=== PATIENT | male | born 1950 | race Caucasian/White ===

== ENCOUNTER 2018-03-20 19:23 | Emergency (ER) | payer MEDICARE ==
[~2018-03-20] VITALS: Ht 188 cm; Wt 128.4 kg
[2018-03-20] MEDS ORDERED: ASPIRIN 81 MG TAB.CHEW PO ONE (19:45)
[2018-03-20 20:21] LABS: BASO % 0 % (0-3); EOS % 0 % (0-3); HEMATOCRIT 46.9 % (39.0-53.0); HEMOGLOBIN 16.2 g/dL (13.0-17.5); LYMPH # 1.3 x10^3/uL (1.0-4.8); LYMPH % 10 % (24-48); MEAN CORPUSCULAR HEMOGLOBIN 29 pg (25-35); MEAN CORPUSCULAR HGB CONC 35 g/dL (31-37); MEAN CORPUSCULAR VOLUME 84 fL (79-100); MONO # 1.3 x10^3/uL (0.0-1.1); MONO % 10 % (0-9); NEUT # 10.5 x10^3uL (1.8-7.7); NEUT % 80 % (31-73); PLATELET COUNT 237 x10^3/uL (140-400); RED BLOOD COUNT 5.61 x10^6/uL (4.30-5.70); RED CELL DISTRIBUTION WIDTH 12.8 % (11.5-14.5); WHITE BLOOD COUNT 13.2 x10^3/uL (4.0-11.0)
[2018-03-20 21:02] LABS: ALBUMIN 3.6 g/dL (3.4-5.0); ALBUMIN/GLOBULIN RATIO 0.9 (1.0-1.7); CREATININE 1.1 mg/dL (0.7-1.3); POTASSIUM 4.3 mmol/L (3.5-5.1); TOTAL BILIRUBIN 0.4 mg/dL (0.2-1.0); TOTAL PROTEIN 7.5 g/dL (6.4-8.2)
[2018-03-20 21:40] VITALS: BP 143/69
--- NOTE | 2018-03-20 21:42 | PHYS DOC ---
Past History Past Medical History: GERD, High Cholesterol, Hypertension, Other Past Surgical History: Appendectomy, Other Alcohol Use: Heavy Additional Alcohol Information: daily a drink Adult General Chief Complaint Chief Complaint: CHEST PAIN HPI HPI 67-year-old male presents with left-sided chest pain. Patient states it was a squeezing pressure that came on suddenly around 5:30 PM while he was sitting on the couch. It felt like it was just under his left rib cage radiating across the right side of his chest. He had some mild shortness of breath. He denies diaphoresis. The pain was a 3 out of 10 at its worst. At this time it is barely noticeable. The patient has had a stress test in the past has been over a year. He had a cardiac catheter that was negative many years ago. He had an EKG and echocardiogram about a year ago was reported to be unremarkable. Patient denies fever at home. He does have intermittent night sweats at baseline. Review of Systems Review of Systems Constitutional: Denies fever or chills [] Eyes: Denies change in visual acuity, redness, or eye pain [] HENT: Denies nasal congestion or sore throat [] Respiratory: Mild shortness of breath [] Cardiovascular: No additional information not addressed in HPI [] GI: Denies abdominal pain, nausea, vomiting, bloody stools or diarrhea [] : Denies dysuria or hematuria [] Musculoskeletal: Denies back pain or joint pain [] Integument: Denies rash or skin lesions [] Neurologic: Denies headache, focal weakness or sensory changes [] Endocrine: Denies polyuria or polydipsia [] All other systems were reviewed and found to be within normal limits, except as documented in this note. Current Medications Current Medications Current Medications Medications (Trade) Dose Ordered Sig/[facility] Start Time Stop Time Status Last Admin Dose Admin Aspirin (Children'S Aspirin) 324 mg 1X ONCE 03/20/18 19:45 03/20/18 19:51 DC 03/20/18 19:58 324 MG Allergies Allergies Allergies Coded Allergies Type Severity Reaction Last Updated Verified No Known Drug Allergies 03/20/18 No Physical Exam Physical Exam Constitutional: Well developed, well nourished, no acute distress, non-toxic appearance. [] HENT: Normocephalic, atraumatic, bilateral external ears normal, oropharynx moist, no oral exudates, nose normal. [] Eyes: PERRLA, EOMI, conjunctiva normal, no discharge. [] Neck: Normal range of motion, no tenderness, supple, no stridor. [] Cardiovascular:Heart rate regular rhythm, no murmur [] Lungs & Thorax: Bilateral breath sounds clear to auscultation [] Abdomen: Bowel sounds normal, soft, no tenderness, no masses, no pulsatile masses. [] Skin: Warm, dry, no erythema, no rash. [] Back: No tenderness, no CVA tenderness. [] Extremities: No tenderness, no cyanosis, no clubbing, ROM intact, no edema. [] Neurologic: Alert and oriented X 3, normal motor function, normal sensory function, no focal deficits noted. [] Psychologic: Affect normal, judgement normal, mood normal. [] Current Patient Data Vital Signs Vital Signs Date Time Temp Pulse Resp B/P (MAP) Pulse Ox O2 Delivery O2 Flow Rate FiO2 03/20/18 19:25 98.6 89 24 94 Lab Results Laboratory Tests Test 03/20/18 19:35 03/20/18 20:25 White Blood Count 13.2 x10^3/uL (4.0-11.0) H Red Blood Count 5.61 x10^6/uL (4.30-5.70) Hemoglobin 16.2 g/dL (13.0-17.5) Hematocrit 46.9 % (39.0-53.0) Mean Corpuscular Volume 84 fL (79-100) Mean Corpuscular Hemoglobin 29 pg (25-35) Mean Corpuscular Hemoglobin Concent 35 g/dL (31-37) Red Cell Distribution Width 12.8 % (11.5-14.5) Platelet Count 237 x10^3/uL (140-400) Neutrophils (%) (Auto) 80 % (31-73) H Lymphocytes (%) (Auto) 10 % (24-48) L Monocytes (%) (Auto) 10 % (0-9) H Eosinophils (%) (Auto) 0 % (0-3) Basophils (%) (Auto) 0 % (0-3) Neutrophils # (Auto) 10.5 x10^3uL (1.8-7.7) H Lymphocytes # (Auto) 1.3 x10^3/uL (1.0-4.8) Monocytes # (Auto) 1.3 x10^3/uL (0.0-1.1) H Eosinophils # (Auto) 0.0 x10^3/uL (0.0-0.7) Basophils # (Auto) 0.0 x10^3/uL (0.0-0.2) Troponin I Quantitative < 0.017 ng/mL (0-0.055) Sodium Level 139 mmol/L (136-145) Potassium Level 4.3 mmol/L (3.5-5.1) Chloride Level 103 mmol/L (98-107) Carbon Dioxide Level 26 mmol/L (21-32) Anion Gap 10 (6-14) Blood Urea Nitrogen 20 mg/dL (8-26) Creatinine 1.1 mg/dL (0.7-1.3) Estimated GFR (Cockcroft-Gault) 67.0 BUN/Creatinine Ratio 18 (6-20) Glucose Level 98 mg/dL (70-99) Calcium Level 9.0 mg/dL (8.5-10.1) Total Bilirubin 0.4 mg/dL (0.2-1.0) Aspartate Amino Transferase (AST) 39 U/L (15-37) H Alanine Aminotransferase (ALT) 27 U/L (16-63) Alkaline Phosphatase 110 U/L (46-116) Total Protein 7.5 g/dL (6.4-8.2) Albumin 3.6 g/dL (3.4-5.0) Albumin/Globulin Ratio 0.9 (1.0-1.7) L EKG EKG [] Radiology/Procedures Radiology/Procedures [] Impressions: Preliminary interpretation: The patient has improved with focal consolidation in the left base. The cardiac silhouette is obscured in this location. The only image for comparison is from 2010 and this was not present. Course & Med Decision Making Course & Med Decision Making Pertinent Labs and Imaging studies reviewed. (See chart for details) The patient has an elevated white count with a left shift. His chest x-ray is concerning for consolidation of the left lower lobe. I will treat him with azithromycin for pneumonia. We'll give his first dose in the ED. He is stable for discharge at this time. I have explained that I cannot completely rule out a cardiac cause. The patient's condition worsens he should return to the emergency room. He stated verbal understanding of these directions. [] Dragon Disclaimer Dragon Disclaimer This electronic medical record was generated, in whole or in part, using a voice recognition dictation system. Departure Departure: Referrals: KURT SIMMONS (PCP) RICARDO TOBIN DO Mar 20, 2018 21:42
[2018-03-20] MEDS ORDERED: AZIT250T6 PO (21:44)
[2018-03-20] MEDS ORDERED: AZITHROMYCIN 250 MG TABLET. PO ONE (21:45)
--- NOTE | 2018-03-21 06:30 | EKG ---
[address] [id number] Test Date: 2018-03-20 Test Time: 19:27:51 Pat Name: CORINNE CONTRERAS Department: Room: Gender: M [employer]: : [id number] Requested By: RICARDO TOBIN Order Number: [id number] Reading MD: Bennie Martinez Measurements Intervals [place] Rate: 98 P: 50 [place]: 162 QRS: 0 QRSD: 94 T: 13 QT: 342 QTc: 438 Interpretive Statements SINUS RHYTHM LEFTWARD AXIS QRS(T) CONTOUR ABNORMALITY CONSIDER ANTEROSEPTAL MYOCARDIAL DAMAGE POSSIBLY ABNORMAL ECG Electronically Signed On 03-21-2018 11:50:20 CDT by Bennie Martinez
--- NOTE | 2018-03-21 07:45 | RAD ---
Portable AP chest x-ray performed at 11:00 PM Clinical indications: Chest pain. COMPARISON: October 21, 2009. FINDINGS: There is chronic blunting of the left lateral costophrenic angle. However, there is a new lateral left lung base infiltrate. No pneumothorax is seen. Heart size and mediastinum are stable. IMPRESSION: New lateral left lung base infiltrate. Electronically signed by: Artemio Brown MD (03/21/2018 7:42 AM) [facility]
== END 2018-03-20 21:55 | disposition home or self-care (01) ==
LOC: ER 19:23
DX: R07.89 Other chest pain (principal); D72.829 Elevated white blood cell count, unspecified; K21.9 Gastro-esophageal reflux disease without esophagitis; E78.00 Pure hypercholesterolemia, unspecified; I10 Essential (primary) hypertension; F10.20 Alcohol dependence, uncomplicated; Y90.9 Presence of alcohol in blood, level not specified
CPT/HCPCS: 36415; 71045; 80053; 84484; 85025; 93005; 99285; J0456